=== PATIENT | male | born 1975 | race Caucasian/White ===

== ENCOUNTER → 2016-10-04 | Outpatient (CLI) | payer OTHER ==
[~2016-10-04] MED LIST: IBUPROFEN200 M1 PO; INDOCIN50 MG PO
== END | disposition home or self-care (01) ==
LOC: CDC 10:19
DX: Z01.810 Encounter for preprocedural cardiovascular examination (principal); E66.9 Obesity, unspecified
CPT/HCPCS: 93000

== ENCOUNTER 2016-10-06 09:48 | Day surgery (SDC) | payer OTHER ==
[~2016-10-06] VITALS: Ht 188 cm; Wt 131.5 kg
[2016-10-06 11:05] VITALS: BP 124/79
[2016-10-06 14:22] VITALS: BP 128/77
[2016-10-06 15:07] VITALS: BP 130/72
== END 2016-10-06 15:08 | disposition home or self-care (01) ==
LOC: SDC 09:48
PROC: 0MQN4ZZ Repair Right Knee Bursa and Ligament, Percutaneous Endoscopic Approach (ICD-10-PCS; principal; 2016-10-06)
DX: M23.200 Derangement of unspecified lateral meniscus due to old tear or injury, right knee (principal); M22.41 Chondromalacia patellae, right knee
CPT/HCPCS: J0690; J1100; J1170; J2250; J2405; J3010; J3370